=== PATIENT | female | born 1990 | race Caucasian/White ===

== ENCOUNTER 2017-03-14 10:43 | Emergency (ER) | payer OTHER | END 2017-03-14 11:38 | disposition home or self-care (01) | LOC: FER 10:43 | DX: J02.0 Streptococcal pharyngitis (principal) | CPT/HCPCS: 87450; J0561 ==

== ENCOUNTER 2020-10-21 19:53 | Emergency (ER) | payer MEDICARE, OTHER ==
[~2020-10-21 19:53] MED LIST: ACETAMINOPHEN500 M1 PO; DIAMOX250 MG PO; INDERAL20 MG PO; K-DUR20 MEQ PO; LASIX20 MG PO; MEDROL 4MG DOSEP4 MG PO; NORCO 5-325 TA1 EACH PO; PHENERGAN25 M1 PO; PROTONIX 40MG T40 MG PO; TOPAMAX50 MG PO; ZOFRAN4 MG PO
[2020-10-21 20:40] LABS: BASOPHIL 0.9 % (0-2); EOSINOPHIL 3.9 % (0-5); HCT 51.6 % (37.0-47.0); HGB 15.5 g/dl (12.5-16.0); LYMPHOCYTE 21.2 % (15-48); MCH 25.9 pg (25.0-31.0); MCV 86.3 fL (78.0-100.0); MONOCYTE 5.5 % (0-12); MPV 9.4 fL (6.0-9.5); NEUTROPHIL 68.2 % (41-80); NRBC 0; PLT 284 K/uL (150-400); RBC 5.98 M/uL (4.20-5.40); RDW 15.9 % (11.5-14.0); WBC 12.8 K/uL (4.0-10.5)
[2020-10-21 20:50] LABS: BILIRUBIN NEGATIVE (NEGATIVE); BLOOD 1+ Ery/uL (NEGATIVE); CLARITY CLEAR (CLEAR); COLOR YELLOW (YELLOW); GLUCOSE (U) NORMAL (NORMAL); LEUKOCYTES NEGATIVE Leu/uL (NEGATIVE); NITRITE NEGATIVE (NEGATIVE); PROTEIN NEGATIVE (NEGATIVE); SPECIFIC GRAVITY 1.025 (1.001-1.030); UROBILINOGEN 0.2 mg/dL (0.2-1.0); pH 5.5 (5.0-9.0)
[2020-10-21 20:52] LABS: ALBUMIN 3.6 g/dL (3.4-5.0); BILIRUBIN - TOTAL 0.2 mg/dL (0.2-1.0); BUN/CREAT RATIO (CALC) 17.5 RATIO; CREATININE 1.83 mg/dL (0.51-0.95); GLOBULIN (CALCULATION) 3.8 g/dL; MAGNESIUM 2.1 mg/dL (1.8-2.4); POTASSIUM 3.8 mmol/L (3.5-5.1); TOTAL PROTEIN 7.4 g/dL (6.4-8.2)
[2020-10-21 21:00] LABS: BACTERIA 1+
[2020-10-21 21:00] LABS: LACTIC ACID 1.2 mmol/L (0.4-1.9)
[2020-10-21] MEDS ORDERED: CIPRO500 MG PO (22:26)
== END 2020-10-21 22:36 | disposition home or self-care (01) ==
LOC: FER 19:53
PROVIDERS: Emergency Medicine Emergency Medical Services
DX: N30.00 Acute cystitis without hematuria (principal); R10.11 Right upper quadrant pain; N18.30 Chronic kidney disease, stage 3 unspecified; F17.210 Nicotine dependence, cigarettes, uncomplicated; Z90.49 Acquired absence of other specified parts of digestive tract; Z98.51 Tubal ligation status; Z98.890 Other specified postprocedural states
CPT/HCPCS: 36415; 80053; 81001; 83605; 83690; 83735; 85025

== ENCOUNTER 2021-03-21 16:18 | Emergency (ER) | payer MEDICARE, OTHER ==
[~2021-03-21 16:18] MED LIST changes: +CIPRO500 MG PO
[2021-03-21 16:53] LABS: BASOPHIL 0.8 % (0-2); EOSINOPHIL 2.8 % (0-5); HCT 50.6 % (37.0-47.0); HGB 15.6 g/dl (12.5-16.0); LYMPHOCYTE 19.3 % (15-48); MCH 26.7 pg (25.0-31.0); MCHC 30.8 g/dL (32.0-36.0); MCV 86.5 fL (78.0-100.0); MONOCYTE 7.2 % (0-12); MPV 9.3 fL (6.0-9.5); NEUTROPHIL 69.7 % (41-80); NRBC 0; PLT 233 K/uL (150-400); RBC 5.85 M/uL (4.20-5.40); RDW 14.9 % (11.5-14.0)
[2021-03-21 17:07] LABS: ALBUMIN 3.6 g/dL (3.4-5.0); BILIRUBIN - TOTAL 0.3 mg/dL (0.2-1.0); BUN/CREAT RATIO (CALC) 14.6 RATIO; CREATININE 1.98 mg/dL (0.51-0.95); GLOBULIN (CALCULATION) 3.6 g/dL; TOTAL PROTEIN 7.2 g/dL (6.4-8.2)
[2021-03-21 17:08] LABS: BILIRUBIN NEGATIVE (NEGATIVE); BLOOD NEGATIVE Ery/uL (NEGATIVE); CLARITY CLEAR (CLEAR); COLOR YELLOW (YELLOW); GLUCOSE (U) NORMAL (NORMAL); LEUKOCYTES NEGATIVE Leu/uL (NEGATIVE); NITRITE NEGATIVE (NEGATIVE); PROTEIN NEGATIVE (NEGATIVE); UROBILINOGEN 0.2 mg/dL (0.2-1.0)
[2021-03-21] MEDS ORDERED: COLACE100 M1 PO (19:05)
[2021-03-21] MEDS ORDERED: ONDANSETRON ODT4 MG PO (19:05)
== END 2021-03-21 19:20 | disposition home or self-care (01) ==
LOC: FER 16:18
PROVIDERS: Physician Assistant
DX: K59.00 Constipation, unspecified (principal); I88.0 Nonspecific mesenteric lymphadenitis; N18.30 Chronic kidney disease, stage 3 unspecified; F17.210 Nicotine dependence, cigarettes, uncomplicated
CPT/HCPCS: 36415; 80053; 81003; 83690; 85025

== ENCOUNTER 2021-12-12 16:24 | Emergency (ER) | payer MEDICARE, OTHER ==
[~2021-12-12 16:24] MED LIST changes: +COLACE100 M1 PO; +ONDANSETRON ODT4 MG PO
[2021-12-12 17:01] LABS: BILIRUBIN NEGATIVE (NEGATIVE); BLOOD NEGATIVE Ery/uL (NEGATIVE); CLARITY CLEAR (CLEAR); COLOR YELLOW (YELLOW); GLUCOSE (U) NORMAL (NORMAL); LEUKOCYTES NEGATIVE Leu/uL (NEGATIVE); NITRITE NEGATIVE (NEGATIVE); PROTEIN NEGATIVE (NEGATIVE); SPECIFIC GRAVITY 1.025 (1.001-1.030); UROBILINOGEN 0.2 mg/dL (0.2-1.0)
[2021-12-12 17:14] LABS: BASOPHIL 1.1 % (0-2); EOSINOPHIL 3.6 % (0-5); HCT 53.1 % (37.0-47.0); HGB 16.4 g/dl (12.5-16.0); LYMPHOCYTE 22.1 % (15-48); MCH 26.8 pg (25.0-31.0); MCHC 30.9 g/dL (32.0-36.0); MCV 86.8 fL (78.0-100.0); MONOCYTE 6.1 % (0-12); MPV 9.7 fL (6.0-9.5); NEUTROPHIL 66.7 % (41-80); NRBC 0; PLT 275 K/uL (150-400); RBC 6.12 M/uL (4.20-5.40); RDW 14.3 % (11.5-14.0); WBC 11.5 K/uL (4.0-10.5)
[2021-12-12 17:26] LABS: ALBUMIN 3.8 g/dL (3.4-5.0); BILIRUBIN - TOTAL 0.3 mg/dL (0.2-1.0); BUN/CREAT RATIO (CALC) 14.9 RATIO; CREATININE 1.75 mg/dL (0.51-0.95); GLOBULIN (CALCULATION) 3.4 g/dL; POTASSIUM 4.1 mmol/L (3.5-5.1); TOTAL PROTEIN 7.2 g/dL (6.4-8.2)
[2021-12-12] MEDS ORDERED: ONDANSETRON ODT4 MG PO (17:33)
== END 2021-12-12 17:58 | disposition home or self-care (01) ==
LOC: FER 16:24
PROVIDERS: Emergency Medicine
DX: R11.2 Nausea with vomiting, unspecified (principal); N18.9 Chronic kidney disease, unspecified; F17.200 Nicotine dependence, unspecified, uncomplicated
CPT/HCPCS: 36415; 80053; 81003; 83690; 85025; J1885; J2405; J7030

== ENCOUNTER 2022-03-12 23:48 | Emergency (ER) | payer MEDICARE, OTHER ==
[2022-03-13 01:14] LABS: EOSINOPHIL 3.3 % (0-5); HCT 49.1 % (37.0-47.0); HGB 15.2 g/dl (12.5-16.0); LYMPHOCYTE 31.2 % (15-48); MCH 27.1 pg (25.0-31.0); MCV 87.5 fL (78.0-100.0); MONOCYTE 5.6 % (0-12); MPV 9.3 fL (6.0-9.5); NEUTROPHIL 58.7 % (41-80); NRBC 0; PLT 216 K/uL (150-400); RBC 5.61 M/uL (4.20-5.40); RDW 14.5 % (11.5-14.0); WBC 11.1 K/uL (4.0-10.5)
[2022-03-13 01:32] LABS: ALBUMIN 3.4 g/dL (3.4-5.0); BILIRUBIN - TOTAL 0.2 mg/dL (0.2-1.0); BUN/CREAT RATIO (CALC) 16.3 RATIO; CREATININE 1.84 mg/dL (0.51-0.95); GLOBULIN (CALCULATION) 3.2 g/dL; POTASSIUM 3.7 mmol/L (3.5-5.1); TOTAL PROTEIN 6.6 g/dL (6.4-8.2)
[2022-03-13 01:51] LABS: CORONAVIRUS 2019 SARS-COV-2 NEGATIVE (NEGATIVE); INFLUENZA A NAA NEGATIVE (NEGATIVE)
== END 2022-03-13 03:05 | disposition home or self-care (01) ==
LOC: FER 23:48
PROVIDERS: Internal Medicine
DX: M79.661 Pain in right lower leg (principal); R07.89 Other chest pain; N18.30 Chronic kidney disease, stage 3 unspecified; F17.210 Nicotine dependence, cigarettes, uncomplicated; Z20.822 Contact with and (suspected) exposure to COVID-19
CPT/HCPCS: 36415; 71045; 80053; 84145; 84484; 85025; 85379; 93005; U0002

== ENCOUNTER 2022-04-23 15:36 | Emergency (ER) | payer OTHER, MEDICARE ==
[2022-04-23 17:44] LABS: BASOPHIL 0.8 % (0-2); EOSINOPHIL 2.2 % (0-5); HCT 52.7 % (37.0-47.0); HGB 16.6 g/dl (12.5-16.0); LYMPHOCYTE 21.1 % (15-48); MCHC 31.5 g/dL (32.0-36.0); MCV 85.7 fL (78.0-100.0); MONOCYTE 5.4 % (0-12); MPV 9.2 fL (6.0-9.5); NEUTROPHIL 70.2 % (41-80); NRBC 0; PLT 272 K/uL (150-400); RBC 6.15 M/uL (4.20-5.40); RDW 14.7 % (11.5-14.0); WBC 14.5 K/uL (4.0-10.5)
[2022-04-23 18:03] LABS: ALBUMIN 3.7 g/dL (3.4-5.0); BILIRUBIN - TOTAL 0.4 mg/dL (0.2-1.0); BUN/CREAT RATIO (CALC) 13.3 RATIO; CREATININE 1.81 mg/dL (0.51-0.95); GLOBULIN (CALCULATION) 3.5 g/dL; MAGNESIUM 1.9 mg/dL (1.8-2.4); POTASSIUM 4.1 mmol/L (3.5-5.1); TOTAL PROTEIN 7.2 g/dL (6.4-8.2)
[2022-04-23] MEDS ORDERED: ROBAXIN750 MG PO (18:59)
[2022-04-23] MEDS ORDERED: NORCO 5-325 TA1 EACH PO (18:59)
== END 2022-04-23 19:25 | disposition home or self-care (01) ==
LOC: FER 15:36
PROVIDERS: Emergency Medicine
DX: S00.03XA Contusion of scalp, initial encounter (principal); S80.12XA Contusion of left lower leg, initial encounter; N18.30 Chronic kidney disease, stage 3 unspecified; V49.50XA Passenger injured in collision with unspecified motor vehicles in traffic accident, initial encounter
CPT/HCPCS: 36415; 70450; 71250; 72125; 72128; 72131; 73030; 73590; 80053; 83690; 83735; 85025; J1170; J2405; J7030